=== PATIENT | female | born 1960 | race Asian ===

== ENCOUNTER 2024-04-03 07:13 | Outpatient (CLI) | payer BC, SELFPAY | END 2024-04-03 07:14 | disposition home or self-care (01) | PROVIDERS: Visit Provider Family Medicine | DX: M54.16 Radiculopathy, lumbar region (principal); M51.369 Other intervertebral disc degeneration, lumbar region without mention of lumbar back pain or lower extremity pain | CPT/HCPCS: 64483; J1100; Q9966 ==